=== PATIENT | female | born 1950 | race Two or more races ===

== ENCOUNTER 2017-01-12 12:29 | Emergency (ER) | payer OTHER ==
[~2017-01-12] VITALS: Ht 170.2 cm; Wt 77.6 kg
--- NOTE | 2017-01-12 12:31 | NUR ---
CODE STROKE ACTIVATED
--- NOTE | 2017-01-12 12:31 | NUR ---
BIB [facility] PATIENT COLLAPSED AT HOME, UNRESPONSIVE PER BOYFRIEND. PATIENT RESPONDS TO DEEP PAINFUL STIMULI, IV INTACT ON ROUTE ON RAC, 16 AND LEFT HAND, 20G. PATIENT UNABLE TO FOLLOW COMMANDS. BREATHING EVEN AND UNLABORED. PUPILS PINPOINT. MD AT BEDSIDE FOR EVAL.
--- NOTE | 2017-01-12 12:35 | NUR ---
PT TO CT
--- NOTE | 2017-01-12 12:36 | NUR ---
CALLED [facility]'S TELESTROKE HOTLINE, SPOKE WITH TUSHAR, PRESENTED PT, AWAITING CALLBACK FROM (NEUROLOGIST).
[2017-01-12] MEDS ORDERED: IV NS 0.9% 250 ML IV ONE (12:37)
[2017-01-12] MEDS ORDERED: CT SWABBABLE VALVE TRANS SET 1 EA INFUS.SET MC ONE (12:37)
[2017-01-12] MEDS ORDERED: IOHEXOL-350 100 ML VIAL IV ONE (12:37)
[2017-01-12 12:39] LABS: BASOPHILS % (AUTO) 0.4 % (0.0-2.0); EOSINOPHILS # (AUTO) 0.2 /CMM (0.0-0.7); EOSINOPHILS % (AUTO) 1.6 % (0.0-6.0); HEMATOCRIT 41 % (33-45); HEMOGLOBIN 13.8 g/dL (11.5-14.8); LYMPHOCYTES # (AUTO) 2.2 /CMM (0.8-4.8); LYMPHOCYTES % (AUTO) 22.9 % (20.0-44.0); MEAN CORPUSCULAR HEMOGLOBIN 30 PG (26.0-33.0); MEAN CORPUSCULAR HGB CONC 34 g/dl (31.0-36.0); MEAN CORPUSCULAR VOLUME 88 fL (82-100); MONOCYTES # (AUTO) 0.5 /CMM (0.1-1.30); MONOCYTES % (AUTO) 5.2 % (2.0-12.0); NEUTROPHILS # (AUTO) 6.5 /CMM (1.8-8.9); NEUTROPHILS % (AUTO) 69.9 % (43.0-81.0); PLATELET COUNT (AUTO) 251 /CMM (150-450); RDW COEFFICIENT OF VARIATION 14.5 (11.5-15.0); RED BLOOD CELL COUNT(AUTO) 4.62 MIL/uL (4.0-5.2); WHITE BLOOD COUNT (AUTO) 9.4 K/uL (4.3-11.0)
[2017-01-12 12:49] LABS: CALCIUM, SERUM 9.2 mg/dL (8.5-10.1); CARBON DIOXIDE 26 mmol/L (21-32); CHLORIDE 101 mmol/L (98-107); CREATININE 0.8 mg/dL (0.6-1.3); GLUCOSE 155 mg/dL (74-106); POTASSIUM 3.6 mmol/L (3.5-5.1); SODIUM SERUM 135 mmol/L (136-145); UREA NITROGEN, BLOOD 17 mg/dL (7-18)
--- NOTE | 2017-01-12 12:52 | NUR ---
PT BACK FROM CT
[2017-01-12 12:53] LABS: INR 0.89 (0.87-1.13); PROTHROMBIN TIME 9.3 SECS (9.5-12.7)
[2017-01-12 12:57] LABS: TROPONIN I < 0.017 ng/mL (0.00-0.056)
[2017-01-12] MEDS ORDERED: NICARDIPINE IN DEXTROSE,ISO-OS 200 ML IV ONE (13:00)
[2017-01-12 13:04] LABS: ALANINE AMINOTRANSFERASE 98 U/L (12-78); ALBUMIN 3.8 g/dL (3.4-5.0); ALKALINE PHOSPHATASE 90 U/L (46-116); ASPARTATE AMINOTRANSFERASE 90 U/L (15-37); BILIRUBIN,DIRECT 0.1 mg/dL (0.0-0.2); BILIRUBIN,TOTAL 0.5 mg/dL (0.2-1.0); TOTAL PROTEIN, SERUM 8.6 g/dL (6.4-8.2)
--- NOTE | 2017-01-12 13:12 | NUR ---
RECEIVED CALL FROM BERTA AT [facility], SHE SAID PT IS GOING TO [facility] ROOM [id number], NUMBER FOR REPORT IS [phone]. [facility] WILL ARRIVE HERE BY [phone].
[2017-01-12] MEDS ORDERED: MANNITOL 12.5 GM/50 ML VIAL IV ONE (13:30)
[2017-01-12] MEDS ORDERED: LEVETIRACETAM (500MG) 500 MG in IV NS 0.9% 100 ML IV ONE (13:30)
[2017-01-12] MEDS ORDERED: MANNITOL 50 ML IV ONE (13:38)
[2017-01-12] MEDS ORDERED: ONDANSETRON HCL/PF 4 MG/2 ML VIAL ONE ×2 (13:47→13:48)
[2017-01-12 14:00] VITALS: BP 121/93
[2017-01-12] MEDS ORDERED: ONDANSETRON HCL/PF 4 MG/2 ML VIAL IVP ONE (14:00)
--- NOTE | 2017-01-12 14:05 | NUR ---
REPORT GIVEN TO RNRANGEL AT [facility]. CCT AT BEDSIDE, PATIENT TRANSFERRED TO [facility] VIA STRETCHER.
== END 2017-01-12 14:12 | disposition short-term general hospital (02) ==
LOC: ER 12:30
DX: I62.9 Nontraumatic intracranial hemorrhage, unspecified (principal); I10 Essential (primary) hypertension; R51 Headache; R79.89 Other specified abnormal findings of blood chemistry
CPT/HCPCS: 36415; 70450-TC; 70496-TC; 70498-TC; 71010-TC; 80048-TC; 80076-TC; 82962-TC; 84484-TC; 85025-TC; 85730-TC; A4606; J1953; J2150; J2405; J7030; J7040; J7050; Q9967; Z7610